=== PATIENT | female | born 1950 | race Caucasian/White ===

== ENCOUNTER 2020-12-03 10:17 | Emergency (ER) | payer MEDICARE, BC, SELFPAY ==
--- NOTE | ~2020-12-03 | CT_ITS ---
EXAMINATION: CT abdomen pelvis w con DATE: 12/03/2020 14:52 INDICATION: Low abdominal pain. TECHNIQUE: Computed tomography (CT) of the abdomen and pelvis was performed with 100 mL Omnipaque 350 intravenous contrast. Automated exposure control and iterative reconstruction technique were employe d. The dose-length product was 906.16 mGy-cm. COMPARISON: CT abdomen and pelvis 05/26/2018 FINDINGS: The visualized portions of the lung bases demonstrate mild atelectasis. No pleural effusion . Cardiomegaly is noted. There is pacer wires in right atrium, right ventricle, and coronary sinus. N o pericardial effusion. There is a small sliding hiatal hernia. The liver, gallbladder, spleen, pancr eas, adrenal glands, and left kidney are normal. There is mild atrophy of right kidney. There are sca ttered diverticula in the colon. There is wall thickening of the colon from distal transverse colon t o distal descending colon with surrounding fat stranding, consistent with colitis. There is liquid st ool in the colon suggestive of diarrhea. The appendix is normal. The terminal ileum is normal. There are no pathologically enlarged lymph nodes. There is trace ascites in the pelvis. There is no signifi cant stenosis of celiac axis, superior mesenteric artery, or inferior mesenteric artery. There is mil d thoracolumbar spondylosis. IMPRESSION: 1. Recurrent colitis from the distal transverse colon to distal descending colon. The differential di agnosis includes infectious colitis and ischemic colitis (such as from a hypotensive episode). Reviewed, dictated and finalized at location B. IMPRESSION: 1. Recurrent colitis from the distal transverse colon to distal descending colo n. The differential diagnosis includes infectious colitis and ischemic colitis (such as from a hypotensive episode).
[2020-12-03 10:42] VITALS: BP 110/53; PULSE 65; RESP 18; TEMP 36.8; O2SAT 98
[2020-12-03 11:05] LABS: Basophils Absolute Auto 0.1 K/mm3 (0.0-0.1); Basophils Percent Auto 0.7 % (0.2-1.2); Eosinophils Absolute Auto 0.3 K/mm3 (0-0.3); Eosinophils Percent Auto 3.8 % (0-4.4); Hematocrit 45.1 % (37.0-47.0); Immature Granulocyte Absolute 0.03 K/mm3 (0.00-0.031); Immature Granulocyte Percent A 0.4 % (0-0.5); Lymphocytes Percent Auto 16.8 % (18.3-44.2); Mean Corpuscular Hemoglobin 28.1 pg (26-34); Mean Corpuscular Volume 90.4 fl (80-100); Mean Platelet Volume 10.8 fl (7.4-10.4); Monocytes Absolute Auto 0.7 K/mm3 (0.1-0.6); Monocytes Percent Auto 8.5 % (2.6-8.5); Neutrophils Absolute Auto 5.8 K/mm3 (1.3-6.7); Neutrophils Percent Auto 69.8 % (45.5-73.1); Platelet Count Result 173 k/mm3 (150-375); Red Blood Count 4.99 M/mm3 (4.2-5.4); White Blood Count 8.3 K/mm3 (4.5-10.0)
[2020-12-03 11:17] LABS: Alanine Aminotransferase 20 U/L (4-35); Alkaline Phosphatase 55 U/L (38-126); Anion Gap 6 mmol/L (8-16); Aspartate Amino Transferase 25 U/L (14-36); Bilirubin,Total 0.8 mg/dL (0.2-1.3); Blood Urea Nitrogen 16 mg/dL (7-17); Calcium 9.1 mg/dL (8.4-10.2); Carbon Dioxide 25 mmol/L (22-30); Chloride 102 mmol/L (98-107); Estimated CRCL calculation 55 ml/min; Estimated Glomerular Filt Rate > 60; Glucose 101 mg/dL (65-110); Potassium 3.8 mmol/L (3.4-5.0); Sodium 133 mmol/L (137-145)
[2020-12-03 11:23] LABS: Prothrombin Time 12.9 Seconds (11.1-14.7)
[2020-12-03 11:24] LABS: Partial Thromboplastin Time 25.3 SECONDS (22.3-36.8)
--- NOTE | 2020-12-03 13:28 | ED.GIBLEED ---
HPI - GI Bleed General Chief complaint: GI Bleed Stated complaint: lower abd pain Time Seen by Provider: 12/03/20 13:28 Source: patient Mode of arrival: ambulatory Limitations: no limitations History of Present Illness HPI Narrative: The patient is a 70 yo female with a history of HTN, HLD, AICD, who presents for evaluation of bright red blood per rectum. She has had BRBPR over the past 24 hours. She reports lower abdominal pain, fever and chills. She does have a history of colitis in the past. Pt did have one episode of vomiting today. She also reports diarrhea with blood and clots. No recent travel. No sick contacts. Pt takes a daily baby ASA. Pt denies weakness. No lightheadedness or dizziness. She denies shortness of breath or chest pain. Pt currently feels well without any severe pain. Related Data Home Medications Medication Instructions Recorded Confirmed aspirin 81 mg tablet,delayed 81 mg PO DAILY 02/21/19 08/11/20 release carvedilol 12.5 mg tablet 12.5 mg PO Q12H 02/21/19 08/11/20 lisinopril 40 mg tablet 40 mg PO DAILY 02/21/19 08/11/20 Allergies Allergy/AdvReac Type Severity Reaction Status Date / Time ibuprofen AdvReac Unknown Nausea and Verified 08/23/16 09:22 Vomiting EYE DROPS FOR PINK EYE Allergy Unknown Rash Uncoded 10/21/14 17:53 Review of Systems Review of Systems: CONSTITUTIONAL: Subjective fever and chills EYES: Denies visual changes, redness, or discharge. ENT: Denies rhinorrhea, congestion, sore throat, or otalgia. CARDIOVASCULAR: Denies chest pain, palpitations, or edema. RESPIRATORY: Denies cough or dyspnea. GASTROINTESTINAL:Reports lower abdominal pain, bright red blood per rectum GENITOURINARY: Denies dysuria or hematuria. SKIN: Denies rash or itching. MUSCULOSKELETAL: Denies back pain, joint pain, or myalgia. NEUROLOGIC: Denies headache, numbness, or weakness. [facility] Past Medical History Medical History (Updated 12/03/20 @ 15:24 by Nia Stewart MD) Allergic rhinitis Cardiac arrhythmia Colitis Essential (primary) hypertension Hyperlipidemia LDL goal <100 Surgical History Surgical History (Updated 12/03/20 @ 14:42 by Nia Stewart MD) Status post implantation of automatic cardioverter/defibrillator (AICD) Family History Family History Father Diabetes mellitus, Onset Age: 93 Family history of congestive heart failure, Onset Age: 93 Sibling Patient's sister is in good health Malignant neoplasm of prostate Grandparent Family history of alcoholism, Onset Age: 55 Acute myocardial infarction, Onset Age: 75 Family history of type 2 diabetes mellitus, Onset Age: 75 Mother Family history of malignant neoplasm of breast in first degree relative, Onset Age: 90 Family history of congestive heart failure, Onset Age: 90 Social History Social History Smoking status: Former smoker Second hand tobacco smoke exposure: No Smoking end date: 04/17/88 Alcohol intake: current Drinks per week: 1 Alcohol use details: wine on occasion Substance use: never Exam Narrative: GENERAL: Awake, alert, conversant HEAD: Normocephalic, atraumatic. EYES: PERRLA and EOMI. ENT: Nares clear, no rhinorrhea or epistaxis. Mucous membranes moist. NECK: Supple. CHEST: No respiratory distress, breathing even and non labored HEART: Regular rate, sinus rhythm ABDOMEN:Non distended, mildly tender in the LLQ, no rebound EXTREMITIES: Normal range of motion. No edema. SKIN: Warm, dry, no rash. NEURO:No focal deficits. Alert and oriented x3 Course Vital Signs Vital signs: Vital Signs Temperature 36.8 C 12/03/20 10:42 Pulse Rate 65 12/03/20 10:42 Respiratory Rate 18 12/03/20 10:42 Blood Pressure 110/53 L 12/03/20 10:42 Pulse Oximetry 98 12/03/20 10:42 Temperature 36.8 C 12/03/20 10:42 Pulse Rate
[2020-12-03] MEDS: SODIUM CHLORIDE 0.9% IV 1,000 ML 999 ML IV CONT (15:18)
== END 2020-12-03 16:16 | disposition home or self-care (01) ==
PROVIDERS: Emergency Provider Emergency Medicine; PCP Internal Medicine
DX: A09 Infectious gastroenteritis and colitis, unspecified (principal); I10 Essential (primary) hypertension; E78.5 Hyperlipidemia, unspecified; Z95.810 Presence of automatic (implantable) cardiac defibrillator; Z79.82 Long term (current) use of aspirin; Z87.891 Personal history of nicotine dependence
CPT/HCPCS: 36415; 74177; 80053; 85025; 85610; 85730; 86850; 86900; 86901; 96360; 99284; J7030; Q9967

== ENCOUNTER 2021-10-18 08:40 | Emergency (ER) | payer MEDICARE, BC, SELFPAY ==
--- NOTE | ~2021-10-18 | CT_ITS ---
EXAMINATION: CTA chest PE protocol DATE: 10/18/2021 10:54 INDICATION: Shortness of breath. Cough. TECHNIQUE: Computed tomography angiography (CTA) of the chest was performed with 100 mL Omnipaque-350 intravenous contrast timed to evaluate the pulmonary arteries. Coronal maximum intensity projection 3D-reconstructions were created by the technologist. Automated exposure control and iterative reconst ruction technique were employed. Exam dose: 610.11 mGy-cm total exam DLP. COMPARISON: 10/18/2021 2 view chest FINDINGS: There is diagnostic contrast enhancement of the pulmonary arteries and no evidence of pulmo nary embolism. No thoracic aortic aneurysm or dissection. Mild bilateral apical linear scarring. There are focal areas of peripheral infiltrate in the posterio r medial upper lobes and posterior aspect of the lower posterior segment of the right upper lobe Minimal bilateral lower lobe dependent atelectasis. Heart size is within normal limits. Triple lead left-sided pacemaker device. Coronary artery calcific ation. No pericardial effusion. Normal morphology of the adrenal glands. No suspicious osteolytic or osteoblastic lesions. IMPRESSION: No evidence of pulmonary embolism Scattered mild pulmonary infiltrates and bilateral lower lobe minimal dependent atelectasis Reviewed, dictated and finalized at Location [facility]. Reviewed, dictated and finalized at location A.
--- NOTE | ~2021-10-18 | XR_ITS ---
XR chest 2V DATE: 10/18/2021 09:39 INDICATION: Cough, shortness of breath TECHNIQUE: PA and lateral views COMPARISON: 12/24/2005 2 view chest FINDINGS: Left triple lead pacemaker device with leads overlying right atrium, right ventricle and co ronary sinus. Heart size is within normal limits. Mild right mid and bilateral lower lung infiltrate or atelectasis. No pleural effusion or pulmonary v ascular congestion or pneumothorax. IMPRESSION: Mild infiltrate or atelectasis in the right mid and both lower lung zones Triple lead left pacemaker device Reviewed, dictated and finalized at location A.
[2021-10-18 08:48] VITALS: BP 148/66; PULSE 57; RESP 20; TEMP 36.9; O2SAT 92
--- NOTE | 2021-10-18 08:56 | ECG_ITS ---
Measurements Intervals Copen Rate: 55 P: 8 OR: 176 QRS: 138 QRSD: 133 T: 40 QT: 481 QTc: 460 Interpretive Statements ELECTRONIC ATRIAL PACEMAKER WITH INHIBITION ELECTRONIC VENTRICULAR PACEMAKER VENTRICULAR PREMATURE COMPLEXES BASELINE ARTIFACT- I, II, III, AVR, AVL, AVF, V6 NO FURTHER INTERPRETATION IS POSSIBLE BORDERLINE ECG Electronically Signed On 10-18-2021 15:12:41 CDT by Berlin Flores D.O.
--- NOTE | 2021-10-18 09:05 | ED.SOB ---
HPI - SOB/Dyspnea General Chief Complaint: Upper Respiratory Infection Stated Complaint: Cough, Face/Ear Pain Time Seen by Provider: 10/18/21 09:04 History of Present Illness HPI Narrative: pt says cough since last monday went to UC and around sick family member pt dx viral infection given prednisone but getting worse and more sob, family member dx bronchitis given abx. no f/cp but having sob and now right ear pain no n/v/d/leg swelling or pain both have not tested positive for covid all testing neg so far Related Data Home Medications Medication Instructions Recorded Confirmed aspirin 81 mg tablet,delayed 81 mg PO DAILY 02/21/19 02/05/21 release (Adult Low Dose Aspirin) carvedilol 12.5 mg tablet 12.5 mg PO Q12H 02/21/19 02/05/21 lisinopril 40 mg tablet 40 mg PO DAILY 02/21/19 02/05/21 Allergies Allergy/AdvReac Type Severity Reaction Status Date / Time ibuprofen AdvReac Unknown Nausea and Verified 10/18/21 08:57 Vomiting EYE DROPS FOR PINK EYE Allergy Unknown Rash Uncoded 10/18/21 08:57 Review of Systems Constitutional: Comments: CONSTITUTIONAL: Denies fever, chills, or sweats. EYES: Denies visual changes, redness, or discharge. ENT: Denies rhinorrhea, congestion, sore throat, has otalgia. CARDIOVASCULAR: Denies chest pain, palpitations, or edema. RESPIRATORY: has cough and dyspnea. GASTROINTESTINAL: Denies abdominal pain, nausea, vomiting, or diarrhea. GENITOURINARY: Denies dysuria or hematuria. SKIN: Denies rash or itching. MUSCULOSKELETAL: Denies back pain, joint pain, or myalgia. NEUROLOGIC: Denies headache, numbness, or weakness. PSYCHIATRIC: Denies anxiety or depression. [facility] Past Medical History Medical History Allergic rhinitis Cardiac arrhythmia Colitis Essential (primary) hypertension Hyperlipidemia LDL goal <100 Surgical History Surgical History Status post implantation of automatic cardioverter/defibrillator (AICD) Family History Family History Father Diabetes mellitus, Onset Age: 93 Family history of congestive heart failure, Onset Age: 93 Sibling Patient's sister is in good health Malignant neoplasm of prostate Grandparent Family history of alcoholism, Onset Age: 55 Acute myocardial infarction, Onset Age: 75 Family history of type 2 diabetes mellitus, Onset Age: 75 Mother Family history of malignant neoplasm of breast in first degree relative, Onset Age: 90 Family history of congestive heart failure, Onset Age: 90 Social History Social History Smoking status: Former smoker Second hand tobacco smoke exposure: No Smoking end date: 04/17/88 Alcohol intake: current Drinks per week: 1 Alcohol use details: wine on occasion Substance use: never Exam Const: Other: APPEARANCE: Well appearing, no pain in distress, well-nourished. Head normocephalic atraumtaic. EYES: PERRLA/EOMI, conjunctivae very clear. NOSE: Normal no drainage EARS:TMS clear left but red retracted right, THROAT: Pharynx clear, no exudate. NECK: Supple. No adenopathy, no masses. RESPIRATORY: Airway patent, repsirations nonlabored. Clear to auscultation bilaterally, no rales, rhonchi, wheezing. but overall decrased b/l CARDIOVASCULAR: Regular rate and rhythm without murmurs rubs or gallops. ABDOMINAL: Soft, nontender, nondistended, no hepatosplenomegally MUSCULOSKELETAl: Moves all extremities. Strenght/ROM intact, No edema, No calf tenderness. NEURO: Alert. Cranial nerves II through XII intact. Good gait. Good coordination SKIN:: Warm, dry. Normal Color PSYCHIATRIC: Normal affect/mood, normal interaction with parents. Course Vital Signs Vital signs: Vital Signs Temperature 36.9 C 10/18/21 08:48 Pulse Rate 57 L 10/18/21 08:48 Respi
[2021-10-18 09:11] VITALS: O2SAT 96
[2021-10-18 09:15] LABS: Basophils Absolute Auto 0.1 K/mm3 (0.0-0.1); Basophils Percent Auto 0.4 % (0.2-1.2); Eosinophils Absolute Auto 0.1 K/mm3 (0-0.3); Eosinophils Percent Auto 0.4 % (0-4.4); Hematocrit 40.5 % (37.0-47.0); Hemoglobin 12.9 g/dL (12.0-15.0); Immature Granulocyte Absolute 0.06 K/mm3 (0.00-0.031); Immature Granulocyte Percent A 0.5 % (0-0.5); Lymphocytes Percent Auto 6.5 % (18.3-44.2); Mean Corpuscular HGB Conc 31.9 g/dl (32-36); Mean Corpuscular Hemoglobin 27.9 pg (26-34); Mean Corpuscular Volume 87.7 fl (80-100); Mean Platelet Volume 10.5 fl (7.4-10.4); Monocytes Absolute Auto 1.1 K/mm3 (0.1-0.6); Monocytes Percent Auto 8.7 % (2.6-8.5); Neutrophils Absolute Auto 10.2 K/mm3 (1.3-6.7); Neutrophils Percent Auto 83.5 % (45.5-73.1); Platelet Count Result 202 k/mm3 (150-375); Red Blood Count 4.62 M/mm3 (4.2-5.4); Red Cell Distribution Width 12.8 % (11.5-14.5); White Blood Count 12.2 K/mm3 (4.5-10.0)
[2021-10-18] MEDS: ALBUTEROL SULFATE (*SP) AEROSOL 1 PUFF 2 PUFF INHALATION (09:17)
[2021-10-18 09:24] LABS: INR 1.1; Prothrombin Time 13.9 Seconds (11.1-14.7)
[2021-10-18 09:25] LABS: Partial Thromboplastin Time 24.8 SECONDS (22.3-36.8)
[2021-10-18 09:25] LABS: Alveolar/Arterial O2 Gradient 23.8 mmHg; Base Excess ABG -0.6 mEq/l (+/-2.0); Fractional Inspired Oxygen 28 %; HCO3 ABG 23.9 mEq/l (22.0-26.0); Oxygen Saturation ABG 98.6 % (95.0-100.0); Oxyhemoglobin 97.4 % THb (90.0-100.0); PCO2 ABG 39.1 mmHg (35.0-45.0); PO2 ABG 129.7 mmHg (80.0-100.0); PO2 FiO2 Ratio Arterial Blood 4.63 %; Total Hemoglobin 13.7 g/dL (12.0-18.0); pH ABG 7.404 (7.350-7.450)
[2021-10-18 09:26] LABS: Alanine Aminotransferase 22 U/L (6-35); Albumin Level 3.8 g/dL (3.5-5.1); Alkaline Phosphatase 73 U/L (38-126); Anion Gap 3 mmol/L (8-16); Aspartate Amino Transferase 26 U/L (14-36); Bilirubin,Total 0.3 mg/dL (0.2-1.3); Blood Urea Nitrogen 20 mg/dL (7-17); Calcium 8.5 mg/dL (8.4-10.2); Carbon Dioxide 30 mmol/L (22-30); Chloride 100 mmol/L (98-107); Estimated CRCL calculation 63 ml/min; Estimated Glomerular Filt Rate > 60; Glucose 116 mg/dL (65-110); Potassium 3.9 mmol/L (3.4-5.0); Sodium 133 mmol/L (137-145)
[2021-10-18 09:32] LABS: D Dimer 0.68 ug/mL (<0.48)
[2021-10-18 09:39] LABS: NT Pro B Type Natriuretic Pept 612 pg/mL (5-100)
[2021-10-18 09:53] LABS: SARS-CoV-2 RNA PCR Negative
[2021-10-18 10:12] VITALS: BP 124/56; PULSE 50; RESP 17; O2SAT 98
[2021-10-18 10:13] LABS: Troponin I < 0.012 ng/mL (0.000-0.034)
[2021-10-18] MEDS: FUROSEMIDE INJ 40 MG/4 ML VIAL 20 MG IV PUSH (10:26)
[2021-10-18] MEDS: AZITHROMYCIN 250 MG TABLET 500 MG PO (10:26)
--- NOTE | 2021-10-18 10:40 | PC.NURSE ---
pt to CT at this time.
[2021-10-18 12:01] VITALS: BP 133/52; PULSE 58; RESP 18; O2SAT 97
[2021-10-19 11:27] LABS: Device NASAL CANNULA
== END 2021-10-18 12:03 | disposition home or self-care (01) ==
PROVIDERS: Emergency Provider Emergency Medicine; PCP Family Medicine
DX: J18.9 Pneumonia, unspecified organism (principal); H66.91 Otitis media, unspecified, right ear; I10 Essential (primary) hypertension; E78.5 Hyperlipidemia, unspecified; Z87.891 Personal history of nicotine dependence; Z20.822 Contact with and (suspected) exposure to COVID-19
CPT/HCPCS: 36415; 36600; 71046; 71275; 80053; 82805; 83735; 83880; 84484; 85025; 85380; 85610; 85730; 93005; 96365; 96375; 99284; A9270; C9803; J0696; J1940; Q9967; U0003; U0005

== ENCOUNTER 2023-02-02 08:23 | Outpatient (CLI) | payer MEDICARE, BC, SELFPAY ==
[2023-02-02 18:55] LABS: Alanine Aminotransferase 15 U/L (6-35); Alkaline Phosphatase 56 U/L (38-126); Anion Gap 4 mmol/L (8-16); Aspartate Amino Transferase 27 U/L (14-36); Bilirubin,Total 0.5 mg/dL (0.2-1.3); Blood Urea Nitrogen 23 mg/dL (7-17); Carbon Dioxide 31 mmol/L (22-30); Chloride 103 mmol/L (98-107); Cholesterol 126 mg/dL (0-200); Estimated Glomerular Filt Rate 54; Glucose 88 mg/dL (65-110); HDL Direct 38 mg/dL; Potassium 4.2 mmol/L (3.4-5.0); Sodium 138 mmol/L (137-145); Triglycerides 75 mg/dL (<150)
[2023-02-02 21:33] LABS: LDL Cholesterol Direct 71 mg/dL
[2023-02-03 08:15] LABS: Hemoglobin A1C 5.2 % (<5.7)
== END 2023-02-02 08:24 | disposition home or self-care (01) ==
LOC: ANHGOSHLAB 08:29
PROVIDERS: PCP Family Medicine; Visit Provider Family Medicine
DX: E78.5 Hyperlipidemia, unspecified (principal); Z13.228 Encounter for screening for other metabolic disorders; R73.9 Hyperglycemia, unspecified
CPT/HCPCS: 36415; 80053; 80061; 83036

== ENCOUNTER 2024-10-02 10:41 | Emergency (ER) | payer MEDICARE, BC, SELFPAY ==
--- NOTE | ~2024-10-02 | XR_ITS ---
XR knee RT min 4V Ordering provider: Albertina Ely PA-C History: . knee pain, fall CHRONIC INSTABITLITY TWIST INJ W/LAT SWELLIN . Comparison: None. FINDINGS: BONES: No acute fracture or dislocation. JOINT SPACES: Normal. SOFT TISSUES: Normal. IMPRESSION: No acute osseous abnormality right knee. Reviewed, dictated and finalized at location A.
--- NOTE | ~2024-10-02 | US_ITS ---
EXAMINATION: US venous doppler LE RT DATE: 10/02/2024 12:14 INDICATION: Posterior right knee pain TECHNIQUE: Grayscale ultrasound images without and with compression and Doppler ultrasound images of the right lower extremity veins were obtained. COMPARISON: None. FINDINGS: The visualized portions of right common femoral vein, profunda (deep) femoral vein, femoral vein, pop liteal vein, peroneal trunk, posterior tibial veins, peroneal veins, gastrocnemius vein and greater s aphenous vein outflow are patent. IMPRESSION: 1. No deep venous thrombosis in the right lower limb. Reviewed, dictated and finalized at location A.
--- NOTE | ~2024-10-02 | CT_ITS ---
CT head without contrast Indication: Head injury Technique: Serial scans were obtained through the brain without the administration of contrast. Dose reduction technique was used on this scan by utilizing automated exposure control and iterative recon struction technique. The dose-length product (DLP) was 605.33 mGy-cm. Findings: There is no evidence of intracranial hemorrhage, mass lesion, or acute infarct. The ventri cles and subarachnoid spaces are unremarkable. Low attenuation regions are seen within the periventr icular white matter bilaterally, likely representing changes from chronic microvascular ischemic dise ase. There is no evidence of edema, mass effect or midline shift. The visualized paranasal sinuses and mastoid air cells are clear. Impression: No intracranial hemorrhage, mass, or acute infarct. Mild chronic white matter changes, as above. Reviewed, dictated and finalized at location . Impression: No intracranial hemorrhage, mass, or acute infarct. Mild chronic white matter changes, as above.
[2024-10-02 10:57] VITALS: BP 152/84; PULSE 57; RESP 20; TEMP 36.4; O2SAT 97
[2024-10-02] MEDS: ACETAMINOPHEN 500 MG TABLET 1000 MG PO (11:45)
--- NOTE | 2024-10-02 11:53 | ED_ITS ---
HPI - Extremity Injury (Lower) General Chief Complaint: Extremity Injury, Lower Stated Complaint: Fell yesterday. Right leg pain Time Seen by Provider: 10/02/24 11:13 Source: patient Mode of arrival: ambulatory Limitations: no limitations History of Present Illness HPI Narrative: Patient is a 74-year-old female who presents the ED with report of right knee pain. Patient reports her right leg gave out on her last night and she fell, landing on her right knee. States she twisted awkwardly when she fell. Complains of pain to her right posterior knee since then. She did hit her head, denied LOC. Denies headache, nausea, vomiting, dizziness, lightheadedness. Denies neck or back pain. Has not taken anything for pain. Is able to ambulate, but has pain with this. Denies numbness. Related Data Home Medications ?Medication ?Instructions ?Recorded ?Confirmed ?Last Taken ?Type aspirin 81 mg tablet,delayed 81 mg PO DAILY 02/21/19 12/07/23 Unknown History release (Adult Low Dose Aspirin) carvedilol 12.5 mg tablet 12.5 mg PO Q12H 02/21/19 12/07/23 Unknown History spironolactone 25 mg tablet 25 mg PO DAILY 08/09/22 12/07/23 Unknown History losartan 50 mg tablet 50 mg PO DAILY 12/07/23 12/07/23 Unknown History Allergies Allergy/AdvReac Type Severity Reaction Status Date / Time perflutren (From Definity) Allergy Mild Back Pain Verified 12/07/23 13:39 lisinopril AdvReac Mild Cough Verified 12/07/23 13:39 ibuprofen AdvReac Unknown Nausea and Verified 12/07/23 13:39 Vomiting EYE DROPS FOR PINK EYE Allergy Unknown Rash Uncoded 12/07/23 12:56 Review of Systems Review of Systems: All systems reviewed & are unremarkable except as noted in HPI. All systems reviewed & are unremarkable except as noted in HPI and below PMFSH Past Medical History Medical History Allergic rhinitis Cardiac arrhythmia Colitis Essential (primary) hypertension Hyperlipidemia LDL goal <100 Surgical History Surgical History Status post implantation of automatic cardioverter/defibrillator (AICD) Family History Family History Father Diabetes mellitus, Onset Age: 93 Family history of congestive heart failure, Onset Age: 93 Sibling Patient's sister is in good health Malignant neoplasm of prostate Grandparent Family history of alcoholism, Onset Age: 55 Acute myocardial infarction, Onset Age: 75 Family history of type 2 diabetes mellitus, Onset Age: 75 Mother Family history of malignant neoplasm of breast in first degree relative, Onset Age: 90 Family history of congestive heart failure, Onset Age: 90 Social History Social History Smoking status: Former smoker Second hand tobacco smoke exposure: No Smoking end date: 04/17/88 Alcohol intake: current Drinks per week: 1 Alcohol use details: wine on occasion Substance use: never Lack of Transportation: No Lack of Food: Never True Current Housing: I Have Housing Concerned About Future Housing: No Difficulty Paying Gas/Electric Bills: No Difficulty Paying for Meds: No Currently Unemployed: No Education: Trade/Vocational Certificate Difficulty w/ Childcare or Family Care: No Exam Narrative: GENERAL: Elderly but well appearing, well-nourished, non-toxic, in no acute distress. HEAD: Normocephalic, atraumatic. No contusions. EYES: PERRL/EOMI, conjunctiva clear. RESPIRATORY: Airway patent, respirations nonlabored. CARDIOVASCULAR: Regular rate and rhythm without murmurs, rubs, or gallops. Pedal pulses intact. MUSCULOSKELETAL: Moves all extremities. Mild limited extension range of motion of right leg/knee due to pain. Full flexion. Tenderness to palpation along posterior right knee/popliteal region. Sensation intact. No significant lower extremity swelling. SKIN: Warm, dry, normal color. NEURO: A&O X3. Speech clear. No ataxic movements. PSYCHIATRIC: Appropriate mood and affect. Normal interaction. Course Vital Signs Vital signs: Vital Signs Temperature 97.5 F L 10/02/24 10:57 Pulse Rate 57 L 10/02/24 10:57 Respiratory Rate 20 10/02/24 10:57 Blood Pressure 152/84 H 10/02/24 10:57 Pulse Oximetry 97 10/02/24 10:57 Oxygen Delivery Room Air 10/02/24 10:57 Temperature 97.5 F L 10/02/24 10:57 Pulse Rate 57 L 10/02/24 10:57 Respiratory Rate 20 10/02/24 10:57 Blood Pressure 152/84 H 10/02/24 10:57 Pulse Oximetry 97 10/02/24 10:57 Oxygen Delivery Room Air 10/02/24 10:57 MDM - Extremity Injury (Lower) MDM Narrative Medical decision making narrative: Patient?s injury is consistent with musculoskeletal etiology. No signs of neurologic or vascular compromise on physical examination. Compartments are soft without signs of compartment syndrome. XR of right knee negative. No fracture or joint effusion. Venous Doppler ultrasound was obtained of right lower extremity. CT brain was obtained and without acute findings. No neck pain or tenderness on exam. C-spine cleared. Pain is consistent with knee sprain, possible ligamentous vs meniscal injury. Patient has a brace she has been wearing which does help the pain. Discussed RICE therapy, tylenol as needed for pain. Patient is felt to be stable for discharge home and further outpatient management and treatment. Will refer to orthopedics for further eval if needed. given return precautions. She agrees with plan. Discharged in stable condition. Medical Records Attestation: I reviewed the patient's medical records. Imaging Data Attestation: I personally reviewed and interpreted this imaging study as follows: Radiologist's impression: ITS Impressions Knee X-Ray 10/02/24 11:44 IMPRESSION: No acute osseous abnormality right knee. Head CT 10/02/24 11:59 Impression: No intracranial hemorrhage, mass, or acute infarct. Mild chronic white matter changes, as above. Venous Doppler Study 10/02/24 12:23 IMPRESSION: 1. No deep venous thrombosis in the right lower limb. Discharge Plan Discharge Clinical Impression: Strain of right knee Qualifiers: Encounter type: initial encounter Qualified Code(s): S86.911A - Strain of unspecified muscle(s) and tendon(s) at lower leg level, right leg, initial encounter Patient Disposition: Home Condition: Stable Instructions: Antibiotic Form, Knee Pain (ED) Additional Instructions: Your imaging here did not show any evidence of fracture or blood clots. You likely strained your knee. Continue Tylenol, ice, elevation of leg, brace for support. You may follow-up with orthopedics for further evaluation if needed. Return to the ED for worsening or severe pain, recurrent fall or injury, numbness, or any other symptoms of concern. Patient Language: Citizen Of [place] Prescriptions: No Action losartan 50 mg tablet 50 mg PO DAILY spironolactone 25 mg tablet 25 mg PO DAILY aspirin [Adult Low Dose Aspirin] 81 mg tablet,delayed release (DR/EC) 81 mg PO DAILY carvedilol 12.5 mg tablet 12.5 mg PO Q12H pravastatin 20 mg tablet 20 mg PO DAILY Qty: 90 1RF Follow-up/Referrals: PHYSICIAN,PROFESSOR OF SOCIOLOGY [Primary Care Provider] - Mayo Alas MD [Physician] - (ORTHOPEDICS) Time of Disposition: 12:52
--- OUTSIDE RECORDS SUMMARY | 2024-10-02 12:17 | XMS_ITS | Referral Summary ---
Author Organization [facility] [address] [address] Address [address] [place] [address] Care Team Providers Care Certified Retinal Angiographer Name Role Phone No, Physician Primary Care Provider [phone] Encounters Date Type Department Care Team Description 10/02/2024 Orders Only [facility] Cardiology [facility] [address] [place] [id number] Sherif Borden MD Complete atrioventricular block (HCC) (Primary Dx); 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; NICM (nonischemic cardiomyopathy) (HCC); Congestive heart failure, unspecified HF chronicity, unspecified heart failure type (HCC) 10/02/2024 10:00 AM CDT Ancillary Procedure [facility] Cardiology [address] [facility] [address] [place] [address] NICM (nonischemic cardiomyopathy) (HCC); Congestive heart failure, unspecified HF chronicity, unspecified heart failure type (HCC); Complete atrioventricular block (HCC); 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 from Last 3 Months Allergies Active Allergy Reactions Criticality Noted Date Comments Perflutren Lipid Microspheres Other (See comments) Low 06/13/2022 Sudden back ache Aurora Flavor Unknown Prochlorperazine Blisters High Reaction: BLISTERS, Medications aspirin 81 mg tablet take 1 by Oral route 2- 3 times every week 0 0 9 Active calcium carbonate-vitamin D3 (CALCIUM 600 WITH VITAMIN D3) 600 mg(1,500mg) -500 unit capsule take as directed 0 0 6 Active spironolactone (ALDACTONE) 25 mg tablet TAKE 1 TABLET(25 MG) BY MOUTH DAILY 30 tablet 11 4 Active carvediloL (COREG) 12.5 mg tablet TAKE 1 TABLET(12.5 MG) BY MOUTH TWICE DAILY WITH MEALS 180 tablet 1 4 Active losartan (COZAAR) 50 mg tabletIndications:D ilated cardiomyopathy (HCC),Essential hypertension Take 1 tablet (50 mg total) by mouth daily 90 tablet 3 4 02/16/20 25 Active pravastatin (PRAVACHOL) 20 mg tablet Take 1 tablet (20 mg total) by mouth daily 90 tablet 3 5 05/30/19 26 Active Active Problems Problem Noted Date Diagnosed Date ALAN (dyspnea on exertion) 05/15/2023 Near syncope 03/16/2020 Hypercholesteremia 03/04/2019 Essential hypertension 11/23/2015 Overview (07/22/2016): Essential hypertension Assessment & Plan (11/24/2016 8:14 PM CDT): BP not at goal today and at last office visit although in general apparently runs fairly well. Obesity with body mass index 30 or greater 11/22 Overview (07/23/2016): Obesity (BMI 30-39.9) Biventricular ICD (implantab le cardioverter-defibrillator) in place 11/11/2014 Overview (09/20/2017): Medtronic BIV ICD Dx; NICM, CHF, CHB. Gen change 09/12/2017, chronic atrial lead 12/23/05, RV & LV leads 02/15/2012. Alternate carelink remote and office device checks Q6 mo. Assessment & Plan (11/24/2016 8:13 PM CDT): Upgraded to a by the ICD 2011. Pacemaker check 08/2016 showed normal function, no defibrillations. Dilated cardiomyopathy 11/05/2012 Overview (07/22/2016): [facility]OM[facility]ATH IN [facility] DIS Assessment & Plan (11/24/2016 8:14 PM CDT): Cardiomyopathy thought to be secondary to chronic RV pacing, or perhaps the bundle branch block was a manifestation of impending myocardial process. EF improved though not normalized, 45-50% in November 2013. Complete atrioventricular block 10/21/2008 Overview (07/22/2016): ATRIOVENT BLOCK COMPLETE Resolved Problems Problem Noted Date Diagnosed Date Resolved Date Hypertension 11/05/2012 11/24/2016 Overview (07/22/2016): HYPERTENSION NOS Social History Tobacco Use Types Packs/Day Years Used Date Smoking Tobacco: Former Cigarettes 0.8 10 0 04/17/1978 - 04/17/1988 Smokeless Tobacco: Never Tobacco Cessation:Counseling Given: Not Answered Alcohol Use Standard Drinks/Week Comments Yes 0 (1 standard drink = 0.6 oz pur e alcohol) Comments Unknown Sex and Gender Information Value Date Recorded Sex Assigned at Not on file Legal Sex Female 9:54 AM PROCEDURES NURSE Gender Identity Not on file Sexual Orientation Not on file Last Filed Vital Signs Vital Sign Reading Time Taken Comments Blood Pressure 120/64 05/30/2024 10:24 AM PROCEDURES NURSE Pulse 65 05/30/2024 10:24 AM PROCEDURES NURSE Temperature 36.2 C (97.1 F) 04/03/2020 10:18 AM PROCEDURES NURSE Respiratory Rate 14 11/24/2016 1:20 PM CDT Oxygen Saturation 96% 05/30/2024 10:24 AM PROCEDURES NURSE Inhaled Oxygen Concentration - - Weight 98 kg (216 lb) 05/30/2024 10:24 AM PROCEDURES NURSE Height 170.2 cm (5' 7) 05/30/2024 10:24 AM PROCEDURES NURSE Body Mass Index 33.83 05/30/2024 10:24 AM PROCEDURES NURSE Plan of Treatment Not on file Medical Devices Implanted Type Area Division Supervisor Device Identifier Shelf Expiration Date Model / Serial / Lot Icd-02/15/2012 Implanted:02/14 (Quantity not on file) Explanted:09/12 by Brook Loredo MD (Quantity not on file) ICD Chest Medtronic NICM, CHF, CHB PROTECTA C RT-D / [id number] / CHRONIC ATRIAL LEAD 2006 Icd-09/12/2017 Implanted:09/12 by Brook Loredo MD (Quantity not on file) ICD Chest Medtronic NICM, CHF, CHB VIVA HARNESS CLEANER-D / [id number] / CHRONIC LEADS A-2006-RV/LV-2 012 Insurance MEDICARE MEDICARE [facility] Member Subscriber Plan / Payer (Ef fective 2007-Present) Name:Nir Pradhan Relation to Subscriber:Self Name:Nir Pradhan Payer ID:[id number] ([facility]) Group ID:[id number] Type:[employer] Address: [facility] [id number] [id number] Care Teams Certified Retinal Angiographer Relationship Specialty Start Date End Date No, Physician PCP - General 05/30/24
--- OUTSIDE RECORDS SUMMARY | 2024-10-02 12:17 | XMS_ITS | Encounter Summary ---
Author Organization [facility] Address [address] [place] [address] Care Team Providers Care Kennel Helper Name Role Phone Sunday No MD Primary Care Provider [phone] Encounter Details Date Type Department Care Team (Late st Contact Info) Description 12/13/2007 Outpatient Historical [facility] Sunday No MD Other Screening Mammogram Social History Tobacco Use Types Packs/Day Years Used Date Smoking Tobacco: Never Assessed Comments Unknown Sex and Gender Information Value Date Recorded Sex Assigned at Not on file Legal Sex Female 5:15 AM SOAP CHIPPER Gender Identity Not on file Sexual Orientation Not on file documented as of this encounter Plan of Treatment Not on file documented as of this encounter Procedures Procedure Name Priority Date/Time Associated Diagnosis Comments MAMMO SCREENING BILAT Routine 12/13/2007 3:05 PM CDT documented in this encounter Results * MAMMO SCREENING BILAT (12/13/2007 3:05 PM CDT) Anatomical Region Laterality Modality Breast Bilateral Other 12/13/2007 3:05 PM CDT Narrative 01/01/2008 2:36 PM CDT [address] [address] Admit Date: 12/13/2007 TAMAR PRADHAN Sex: F Admit Prov: SUNDAY NO Date: 1950 Primary Care Prov: SUNDAY NO CMRN: [id number] [facility] [address] [place] [address] IMAGING SERVICES Ordering Prov: SUNDAY NO Accession Number: [id number] Interpretation BILATERAL SCREENING MAMMOGRAM 12/13/07 Reason for this examination: Annual screening study. Findings: The parenchyma is predominantly fatty bilaterally. There is no mass, malignant calcification, lymphadenopathy or other sign of malignancy. No change since 11/2005. Summary: No mammographic evidence of malignancy. Overall assessment: BIRADS category 1 - Negative Assessment BIRADS: 1-Negative Recommendation: Normal interval follow-up Dictated by: BARRY BARRETT Electronically signed by: BARRY BARRETT 01/01/2008 14:36 Transcribed: 01/01/2008 14:34 AMK Procedure Note Barry Barrett MD - 01/01/2008 [facility] [address] [place], [place] [address] Admit Date: 12/13/2007 SEMAJ RISHABHLATISHA Sex: F Admit Prov: KEAGAN SUNDAY Date: 1950 Primary Care Prov: SUNDAY NO CMRN: [id number] Room: [facility] SSN: [id number] IMAGING SERVICES Ordering Prov: KEAGAN SUNDAY Interpretation BILATERAL SCREENING MAMMOGRAM 12/13/07 Reason for this examination: Annual screening study. Findings: The parenchyma is predominantly fatty bilaterally. Thereis no mass, malignant calcification, lymphadenopathy or other sign ofmalignancy. No change since 11/2005. Summary: No mammographic evidence of malignancy. Overall assessment: BIRADS category 1 - Negative Assessment BIRADS: 1-Negative Recommendation: Normal interval follow-up Dictated by: BARRY BARRETT Electronically signed by: BARRY BARRETT 01/01/2008 14:36 Transcribed: 01/01/2008 14:34 AMK Sunday No MD MAMMO ORDERABLES Final Resul t documented in this encounter Visit Diagnoses Diagnosis Other screening mammogram documented in this encounter Care Teams Kennel Helper Relationship Specialty Start Date End Date Sunday No MD [address] [address] PCP - General 12/18/15 documented as of this encounter
--- OUTSIDE RECORDS SUMMARY | 2024-10-02 12:17 | XMS_ITS | Clinical Summary ---
Author Organization [facility] Address [address] [facility] Attn: Epic Prelude ADT [place] [address] Care Team Providers Care Clay Processing Factory Worker Name Role Phone Madai No MD Primary Care Provider [phone] Social History Tobacco Use Types Packs/Day Years Used Date Smoking Tobacco: Never Assessed Comments Unknown Sex and Gender Information Value Date Recorded Sex Assigned at Not on file Legal Sex Female 5:15 AM PROCESS CONTROL OPERATOR Gender Identity Not on file Sexual Orientation Not on file Plan of Treatment Health Maintenance Due Date Last Done Comments DTAP/TDAP/TD VACCINES (1 - Tdap) 1967 PNEUMOCOCCAL VACCINE 50+ YEARS (1 of 1 - PCV) 04/25/18 99 ZOSTER VACCINE (1 of 2) 1998 OSTEOPOROSIS SCREENING 2013 RSV VACCINE (60+ or ) (1 - 1-dose 75+ series) 2023 INFLUENZA VACCINE (#1) 2023 Care Teams Clay Processing Factory Worker Relationship Specialty Start Date End Date Madai No MD [address] [address] PCP - General 04/03/15
--- OUTSIDE RECORDS SUMMARY | 2024-10-02 12:17 | XMS_ITS | Encounter Summary ---
Author Organization [facility] Address [address] [place] [address] Care Team Providers Care Music Worker Name Role Phone Madai No MD Primary Care Provider [phone] Encounter Details Date Type Department Care Team (Latest Contact Info) Description 01/20/2006 Outpatient Historical HIS [facility] Madai Lopez MD Abnormal Mammogram, Unspecified (Primary Dx) Social History Tobacco Use Types Packs/Day Years Used Date Smoking Tobacco: Never Assessed Comments Unknown Sex and Gender Information Value Date Recorded Sex Assigned at Not on file Legal Sex Female 5:15 AM DOPSTER Gender Identity Not on file Sexual Orientation Not on file documented as of this encounter Plan of Treatment Not on file documented as of this encounter Visit Diagnoses Diagnosis Abnormal mammogram, unspecified- Primary documented in this encounter Care Teams Music Worker Relationship Specialty Start Date End Date Madai No MD [address] [facility] [address] [place] [id number] PCP - General 04/03/15 documented as of this encounter
--- OUTSIDE RECORDS SUMMARY | 2024-10-02 12:17 | XMS_ITS | Encounter Summary ---
Author Organization [facility] Healthcare Address [address] [place] [address] Care Team Providers Care Audio Operator Name Role Phone No, Physician Primary Care Provider Reason for Visit * Cardiology (Routine) - Closed Specialty Diagnoses / Procedures Referred By Contac t Referred To Contact Diagnoses NICM (nonischemic cardiomyopathy) (HCC) Congestive heart failure, unspecified HF chronicity, unspecified heart failure type (HCC) Complete atrioventricular block (HCC) Biventricular ICD (implantable cardioverter-defibrillator) in place Procedures DEVICE CHECK - IN OFFICE Brook Loredo MD Phone: tel: fax: [facility] Medical Group Referral ID Status Reason Start Date Expiration Date Visits Re quested Visits Authorized [id number] Closed 01/12/2022 02/11/2023 1 1 Encounter Details Date Type Department Care Team (Latest Contact Info) Description 10/02/2024 10:00 AM CDT Ancillary Procedure [facility] Medical [facility] Cardiology [address] [place] [address] NICM (nonischemic cardiomyopathy) (HCC); Congestive heart failure, unspecified HF chronicity, unspecified heart failure type (HCC); Complete atrioventricular block (HCC); 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 Social History Tobacco Use Types Packs/Day Years Used Date Smoking Tobacco: Former Cigarettes 0.8 10 0 04/17/1978 - 04/17/1988 Smokeless Tobacco: Never Alcohol Use Standard Drinks/Week Comments Yes 0 (1 standard drink = 0.6 oz pur e alcohol) Comments Unknown Sex and Gender Information Value Date Recorded Sex Assigned at Not on file Legal Sex Female 9:54 AM CRACKING UNIT OPERATOR Gender Identity Not on file Sexual Orientation Not on file documented as of this encounter Plan of Treatment Pending Results Name Type Priority Associated Diagnoses Date /Time DEVICE CHECK - IN OFFICE Cardiac Services Routine NICM (nonischemic cardiomyopathy) (HCC) Congestive heart failure, unspecified HF chronicity, unspecified heart failure type (HCC) Complete atrioventricular block (HCC) Biventricular ICD (implantable cardioverter-defibrillato r) in place 10/02/2024 9:46 AM CDT documented as of this encounter Visit Diagnoses Diagnosis NICM (nonischemic cardiomyopathy) (HCC) Congestive heart failure, unspecified HF chronicity, unspecified heart failure type (HCC) Complete atrioventricular block (HCC) Atrioventricular block, complete Biventricular ICD (implantable cardioverter-defibrillator) in place documented in this encounter Care Teams Audio Operator Relationship Specialty Start Date End Date No, Physician PCP - General 05/30/24 documented as of this encounter
--- OUTSIDE RECORDS SUMMARY | 2024-10-02 12:17 | XMS_ITS | Encounter Summary ---
Author Organization [facility] Address [address] [place] [address] Care Team Providers Care Clubhouse Attendant Name Role Phone No, Physician Primary Care Provider [phone] Reason for Referral * Cardiology (Routine) - Authorized Specialty Diagnoses / Procedures Referred By Contac t Referred To Contact Diagnoses Complete atrioventricular block (HCC) Biventricular ICD (implantable cardioverter-defibrillator) in place NICM (nonischemic cardiomyopathy) (HCC) Congestive heart failure, unspecified HF chronicity, unspecified heart failure type (HCC) Procedures DEVICE CHECK - REMOTE Sherif Borden MD [address] [address] Phone: tel: fax: Referral ID Status Reason Start Date Expiration Date V isits Requested Visits Authorized [id number] Authorized 10/02/2024 04/03/2026 1 1 * Cardiology (Routine) - Authorized Specialty Diagnoses / Procedures Referred By Contac t Referred To Contact Diagnoses Complete atrioventricular block (HCC) Biventricular ICD (implantable cardioverter-defibrillator) in place NICM (nonischemic cardiomyopathy) (HCC) Congestive heart failure, unspecified HF chronicity, unspecified heart failure type (HCC) Procedures DEVICE CHECK - REMOTE Sherif Borden MD [address] [place] [address] Phone: tel: fax: Referral ID Status Reason Start Date Expiration Date V isits Requested Visits Authorized [id number] Authorized 10/02/2024 04/03/2026 1 1 * Cardiology (Routine) - Authorized Specialty Diagnoses / Procedures Referred By Contac t Referred To Contact Diagnoses Complete atrioventricular block (HCC) Biventricular ICD (implantable cardioverter-defibrillator) in place NICM (nonischemic cardiomyopathy) (HCC) Congestive heart failure, unspecified HF chronicity, unspecified heart failure type (HCC) Procedures DEVICE CHECK - REMOTE Sherif Borden MD [address] [place] [address] Phone: tel: fax: Referral ID Status Reason Start Date Expiration Date V isits Requested Visits Authorized [id number] Authorized 10/02/2024 04/03/2026 1 1 * Cardiology (Routine) - Authorized Specialty Diagnoses / Procedures Referred By Contac t Referred To Contact Diagnoses Complete atrioventricular block (HCC) Biventricular ICD (implantable cardioverter-defibrillator) in place NICM (nonischemic cardiomyopathy) (HCC) Congestive heart failure, unspecified HF chronicity, unspecified heart failure type (HCC) Procedures DEVICE CHECK - IN OFFICE Sherif Borden MD [address] [facility] [address] [place] [address] Phone: tel: fax: [facility] Medical Group Referral ID Status Reason Start Date Expiration Date V isits Requested Visits Authorized [id number] Authorized 10/02/2024 11/01/2025 1 1 Encounter Details Date Type Department Care Team (Late st Contact Info) Description 10/02/2024 Orders Only [facility] Medical Group Cardiology [address] [place] [phone] Sherif Borden MD [address] [place] [address] Complete atrioventricular block (HCC) (Primary Dx); Biventricular ICD (implantable cardioverter-defibrillato r) in place; NICM (nonischemic cardiomyopathy) (HCC); Congestive heart failure, unspecified HF chronicity, unspecified heart failure type (HCC) Social History Tobacco Use Types Packs/Day Years Used Date Smoking Tobacco: Former Cigarettes 0.8 10 0 04/17/1978 - 04/17/1988 Smokeless Tobacco: Never Alcohol Use Standard Drinks/Week Comments Yes 0 (1 standard drink = 0.6 oz pur e alcohol) Comments Unknown Sex and Gender Information Value Date Recorded Sex Assigned at Not on file Legal Sex Female 9:54 AM 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 COMPILER Gender Identity Not on file Sexual Orientation Not on file documented as of this encounter Plan of Treatment Scheduled Orders Name Type Priority Associated Diagnoses Orde r Schedule DEVICE CHECK - IN OFFICE Cardiac Services Routine Complete atrioventricular block (HCC) Biventricular ICD (implantable cardioverter-defibrillato r) in place NICM (nonischemic cardiomyopathy) (HCC) Congestive heart failure, unspecified HF chronicity, unspecified heart failure type (HCC) 8 Occurrences starting 10/02/2024 until 04/16/2030 DEVICE CHECK - REMOTE Cardiac Services Routine Complete atrioventricular block (HCC) Biventricular ICD (implantable cardioverter-defibrillato r) in place NICM (nonischemic cardiomyopathy) (HCC) Congestive heart failure, unspecified HF chronicity, unspecified heart failure type (HCC) Expected: 01/01/2025, Expires: 04/16/2030 DEVICE CHECK - REMOTE Cardiac Services Routine Complete atrioventricular block (HCC) Biventricular ICD (implantable cardioverter-defibrillato r) in place NICM (nonischemic cardiomyopathy) (HCC) Congestive heart failure, unspecified HF chronicity, unspecified heart failure type (HCC) Expected: 04/02/2025, Expires: 04/16/2030 DEVICE CHECK - REMOTE Cardiac Services Routine Complete atrioventricular block (HCC) Biventricular ICD (implantable cardioverter-defibrillato r) in place NICM (nonischemic cardiomyopathy) (HCC) Congestive heart failure, unspecified HF chronicity, unspecified heart failure type (HCC) Expected: 07/02/2025, Expires: 04/16/2030 documented as of this encounter Visit Diagnoses Diagnosis Complete atrioventricular block (HCC)- Primary Atrioventricular block, complete Biventricular ICD (implantable cardioverter-defibrillator) in place NICM (nonischemic cardiomyopathy) (HCC) Congestive heart failure, unspecified HF chronicity, unspecified heart failure type (HCC) documented in this encounter Care Teams Clubhouse Attendant Relationship Specialty Start Date End Date No, Physician PCP - General 05/30/24 documented as of this encounter
--- OUTSIDE RECORDS SUMMARY | 2024-10-02 12:17 | XMS_ITS | Encounter Summary ---
Author Organization [facility] Address [address] [place] [address] Care Team Providers Care Brass Wind Instrument Maker Name Role Phone Madai No MD Primary Care Provider [phone] Encounter Details Date Type Department Care Team (Late st Contact Info) Description 12/06/2006 Outpatient Historical [facility] Madai No MD Other Screening Mammogram (Primary Dx) Social History Tobacco Use Types Packs/Day Years Used Date Smoking Tobacco: Never Assessed Comments Unknown Sex and Gender Information Value Date Recorded Sex Assigned at Not on file Legal Sex Female 5:15 AM COPPER MINER BLASTING Gender Identity Not on file Sexual Orientation Not on file documented as of this encounter Plan of Treatment Not on file documented as of this encounter Visit Diagnoses Diagnosis Other screening mammogram- Primary documented in this encounter Care Teams Brass Wind Instrument Maker Relationship Specialty Start Date End Date Madai No MD [address] [place] [id number] PCP - General 04/03/15 documented as of this encounter
--- OUTSIDE RECORDS SUMMARY | 2024-10-02 12:17 | XMS_ITS | Encounter Summary ---
Author Organization [facility] Medical [facility] Address [address] [facility] [address] [place] [address] Care Team Providers Care Telephone Exchange Operator Name Role Phone Emily Campbell NP Primary Care Provider [phone] Wilner Burnham MD Primary Care Provider [phone] Sebastien Elmore DO Primary Care Provider [phone] No, Physician Primary Care Provider [phone] Encounter Details Date Type Department Care Team (Late st Contact Info) Description 08/23/2016 Orders Only [facility] ProviderKaty MD [address] [place] [address] Social History Tobacco Use Types Packs/Day Years Used Date Smoking Tobacco: Former Cigarettes Q uit: 04/17/1986 Alcohol Use Standard Drinks/Week Comments Yes 0 (1 standard drink = 0.6 oz pur e alcohol) Comments Unknown Sex and Gender Information Value Date Recorded Sex Assigned at Not on file Legal Sex Female 9:54 AM SLAGGER Gender Identity Not on file Sexual Orientation Not on file documented as of this encounter Plan of Treatment Not on file documented as of this encounter Procedures Procedure Name Priority Date/Time Associated Diagnosis Comments CARDIOLOGY REPORT 08/23/2016 documented in this encounter Results * CARDIOLOGY REPORT (08/23/2016) Anatomical Region Laterality Modality Other Narrative 08/23/2016 Ordered by an unspecified provider. us Historical Provider [facility] ZACH FOREMAN Final Result documented in this encounter Visit Diagnoses Not on filedocumented in this encounter Care Teams Telephone Exchange Operator Relationship Specialty Start Date End Date Emily Campbell NP PCP - General 07/15/16 12/25/16 Wilner Burnham MD [address] [place], [place] [phone] PCP - General Internal Medicine 12/26/16 01/11/22 Sebastien Elmore DO [address] [place], [place] [id number] PCP - General Family Medicine 01/12/22 05/29/24 No, Physician PCP - General 05/30/24 documented as of this encounter
--- OUTSIDE RECORDS SUMMARY | 2024-10-02 12:17 | XMS_ITS | Clinical Summary ---
Author Organization [facility] [place] [address] Address [address] [place] [address] Care Team Providers Care Seismograph Computer Name Role Phone No, Physician Primary Care Provider [phone] Allergies Active Allergy Reactions Criticality Noted Date Comments Perflutren Lipid Microspheres Other (See comments) Low 06/13/2022 Sudden back ache [place] Flavor Unknown Prochlorperazine Blisters High Reaction: BLISTERS, [...] total) by mouth daily 90 tablet 3 02/13/05/30/19 26 Active Active Problems Problem Noted Date [...] Dilated cardiomyopathy 11/05/2012 Overview (07/22/2016): CARDIOMYOPATH IN OTH DIS Assessment & Plan (11/24/2016 8:14 PM [...] Hypertension 11/05/2012 11/24/2016 Overview (07/22/2016): HYPERTENSION NOS Encounters Date Type Department Care Team Description 10/02/2024 10:00 AM CDT Ancillary Procedure [facility] Cardiology [address] [place] [address] NICM (nonischemic cardiomyopathy) (HCC); Congestive heart failure, unspecified HF chronicity, unspecified heart failure type (HCC); Complete atrioventricular block (HCC); 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 10/02/2024 Orders Only [facility] Cardiology [address] [facility] [address], [place] [address] Sherif Borden MD Complete atrioventricular block (HCC) (Primary Dx); 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 Heart disease 12/2005 Family History Medical History Relation Name Comments Atrial fibrillation Brother Lenny [place] Deep vein thrombosis Brother Lenny [place] Hearing loss Brother Lenny [place] Arthritis Father Ruben Pfannebecker Cancer Father Ruben Pfannebecker Diabetes Father Ruben Pfannebecker Hearing loss Father Ruben Pfannebecker Heart disease Father Ruben Pfannebecker Heart failure Father Ruben Pfannebecker Hypertension Father Ruben Pfannebecker Rashes / Skin problems Father Ruben Pfannebecker Arthritis Mother Da Pfannebecker Atrial fibrillation Mother Da Pfannebecker Cancer Mother Da Pfannebecker Heart disease Mother Da Pfannebecker Heart failure Mother Da Pfannebecker Miscarriages / Stillbirths Mother Da Pfannebeck er Atrial fibrillation Sister Relation Name Status Comments Brother TeraRicardo [place] Father Ruben Pfannebecker (Age 92) Mother Da Pfannebecker (Age 90) Sister Social History Tobacco Use Types Packs/Day Years Used Date Smoking Tobacco: Former Cigarettes 0.8 10 0 04/17/1978 - 04/17/1988 Smokeless Tobacco: Never Tobacco Cessation:Counseling Given: Not Answered Alcohol Use Standard Drinks/Week Comments Yes 0 (1 standard drink = 0.6 oz pur e alcohol) Comments Unknown Sex and Gender Information Value Date Recorded Sex Assigned at Not on file Legal Sex Female 9:54 AM PAYROLL CONSULTANT Gender Identity Not on file Sexual Orientation Not on file Obstetrics History Last Filed Vital Signs Vital Sign Reading Time Taken Comments Blood Pressure 120/64 05/30/2024 10:24 AM PAYROLL CONSULTANT Pulse 65 05/30/2024 10:24 AM PAYROLL CONSULTANT Temperature 36.2 C (97.1 F) 04/03/2020 10:18 AM PAYROLL CONSULTANT Respiratory Rate 14 11/24/2016 1:20 PM CDT Oxygen Saturation 96% 05/30/2024 10:24 AM PAYROLL CONSULTANT Inhaled Oxygen Concentration - - Weight 98 kg (216 lb) 05/30/2024 10:24 AM PAYROLL CONSULTANT Height 170.2 cm (5' 7) 05/30/2024 10:24 AM PAYROLL CONSULTANT Body Mass Index 33.83 05/30/2024 10:24 AM PAYROLL CONSULTANT Plan of Treatment Health Maintenance Due Date Last Done Comments Depression Screening 1948 Fall Risk Assessment 1948 Hepatitis C Screening 1950 Osteoporosis Screening-Bone Density Scan 1948 Hepatitis B Screening 1966 Well Visit 65+ 2013 Pneumococcal vaccine 65+ (3 of 3 - PCV20 or PCV21) 01/31/2021 02/01/2016, 02/12/2013 DTaP/Tdap/Td Vaccine (2 - Tdap) 02/21/2021 1 Covid-19 Vaccine (6 - 2023-2 5 season) 2025 07/29/2024, 01/14/2022, 02/19/2021, Additional history exists Zoster Vaccine Completed 12/04/2019, 05/28/2019 Influenza Vaccine Completed 07/29/2024, , 02/05/2021, Additional history exists Medical Devices Implanted Type Area Readers' Advisory Service Librarian Device Identifier Shelf Expiration Date Model / Serial / Lot Icd-02/15/2012 Implanted:02/14 (Quantity not on file) Explanted:09/12 by Brook Loredo MD (Quantity not on file) ICD Chest Medtronic NICM, CHF, CHB PROTECTA C RT-D / [id number] / CHRONIC ATRIAL LEAD 2006 Icd-09/12/2017 Implanted:09/12 by Brook Loredo MD (Quantity not on file) ICD Chest Medtronic NICM, CHF, CHB VIVA TANK INSULATOR RUBBER-D / [id number] / CHRONIC LEADS A-2006-RV/LV-2 012 Insurance MEDICARE MEDICARE [facility] Care Teams Seismograph Computer Relationship Specialty Start Date End Date No, Physician PCP - General 05/30/24
--- OUTSIDE RECORDS SUMMARY | 2024-10-02 12:17 | XMS_ITS | Encounter Summary ---
Author Organization [facility] Address [address] [place] [address] Care Team Providers Care Solar Sales Representative And Assessor Name Role Phone Emily Campbell NP Primary Care Provider [phone] Emily Campbell NP Primary Care Provider [phone] Wilner Burnham MD Primary Care Provider [phone] Sebastien Elmore DO Primary Care Provider [phone] No, Physician Primary Care Provider [phone] Encounter Details Date Type Department Care Team (Late st Contact Info) Description 05/25/2016 Orders Only [facility] ProviderKaty MD [facility] [place] [address] Social History Tobacco Use Types Packs/Day Years Used Date Smoking Tobacco: Former Cigarettes Q uit: 04/17/1986 Alcohol Use Standard Drinks/Week Comments Yes 0 (1 standard drink = 0.6 oz pur e alcohol) Comments Unknown Sex and Gender Information Value Date Recorded Sex Assigned at Not on file Legal Sex Female 9:54 AM BOOM BOSS Gender Identity Not on file Sexual Orientation Not on file documented as of this encounter Plan of Treatment Not on file documented as of this encounter Procedures Procedure Name Priority Date/Time Associated Diagnosis Comments CARDIOLOGY REPORT 05/25/2016 documented in this encounter Results * CARDIOLOGY REPORT (05/25/2016) Anatomical Region Laterality Modality Other Narrative 05/25/2016 Ordered by an unspecified provider. us Historical Provider [facility] ZACH FOREMAN Final Result documented in this encounter Visit Diagnoses Not on filedocumented in this encounter Care Teams Solar Sales Representative And Assessor Relationship Specialty Start Date End Date Emily Campbell NP PCP - General 07/15/16 12/25/16 Emily Campbell NP PCP - General 05/18/07 07/14/16 Wilner Burnham MD [address] [place] [address] PCP - General Internal Medicine 12/26/16 01/11/22 Sebastien Elmore DO [address] [place] [address] PCP - General Family Medicine 01/12/22 05/29/24 No, Physician PCP - General 05/30/24 documented as of this encounter
--- OUTSIDE RECORDS SUMMARY | 2024-10-02 12:17 | XMS_ITS | Encounter Summary ---
Author Organization [facility] Address [address] [place] [address] Care Team Providers Care Mill Helper Name Role Phone Madai No MD Primary Care Provider [phone] Encounter Details Date Type Department Care Team (Late st Contact Info) Description 12/01/2005 Outpatient Historical [facility] Madai No MD Other Screening Mammogram (Primary Dx) Social History Tobacco Use Types Packs/Day Years Used Date Smoking Tobacco: Never Assessed Comments Unknown Sex and Gender Information Value Date Recorded Sex Assigned at Not on file Legal Sex Female 5:15 AM ASSISTANT PROFESSOR OF DIETETICS Gender Identity Not on file Sexual Orientation Not on file documented as of this encounter Plan of Treatment Not on file documented as of this encounter Visit Diagnoses Diagnosis Other screening mammogram- Primary documented in this encounter Care Teams Mill Helper Relationship Specialty Start Date End Date Madai No MD [address] [place] [id number] PCP - General 04/03/15 documented as of this encounter
--- OUTSIDE RECORDS SUMMARY | 2024-10-02 13:18 | XMS_ITS | Encounter Summary ---
Author Organization [facility] Address [address] [place] [address] Care Team Providers Care Operations Engineer Name Role Phone Madai No MD Primary Care Provider [phone] Encounter Details Date Type Department Care Team (Late st Contact Info) Description 12/06/2006 Outpatient Historical [facility] Madai No MD Other Screening Mammogram (Primary Dx) Social History Tobacco Use Types Packs/Day Years Used Date Smoking Tobacco: Never Assessed Comments Unknown Sex and Gender Information Value Date Recorded Sex Assigned at Not on file Legal Sex Female 5:15 AM ASSISTANT CLINICAL NURSE MANAGER Gender Identity Not on file Sexual Orientation Not on file documented as of this encounter Plan of Treatment Not on file documented as of this encounter Visit Diagnoses Diagnosis Other screening mammogram- Primary documented in this encounter Care Teams Operations Engineer Relationship Specialty Start Date End Date Madai No MD [address] [place] [address] PCP - General 04/03/15 documented as of this encounter
--- OUTSIDE RECORDS SUMMARY | 2024-10-02 13:18 | XMS_ITS | Encounter Summary ---
Author Organization [facility] Address [address] [place] [address] Care Team Providers Care Marine Pilot Name Role Phone Emily Campbell NP Primary Care Provider [phone] Emily Campbell NP Primary Care Provider [phone] Wilner Burnham MD Primary Care Provider [phone] Sebastien Elmore DO Primary Care Provider [phone] No, Physician Primary Care Provider [phone] Encounter Details Date Type Department Care Team (Late st Contact Info) Description 05/25/2016 Orders Only [facility] ProviderKaty MD [facility] [place] [address] Social History Tobacco Use Types Packs/Day Years Used Date Smoking Tobacco: Former Cigarettes Q uit: 04/17/1986 Alcohol Use Standard Drinks/Week Comments Yes 0 (1 standard drink = 0.6 oz pur e alcohol) Comments Unknown Sex and Gender Information Value Date Recorded Sex Assigned at Not on file Legal Sex Female 9:54 AM 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
--- OUTSIDE RECORDS SUMMARY | 2024-10-02 13:18 | XMS_ITS | Referral Summary ---
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; NICM (nonischemic cardiomyopathy) (HCC); Congestive heart failure, unspecified HF chronicity, unspecified heart failure type (HCC) 10/02/2024 10:00 AM CDT Ancillary Procedure [facility] Cardiology [address] [place] [address] NICM (nonischemic cardiomyopathy) (HCC); Congestive heart failure, unspecified HF chronicity, unspecified heart failure type (HCC); Complete atrioventricular block (HCC); 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 from Last 3 Months Allergies Active Allergy Reactions Criticality Noted Date Comments Perflutren Lipid Microspheres Other (See comments) Low 06/13/2022 Sudden back ache [place] Flavor Unknown Prochlorperazine Blisters High Reaction: BLISTERS, [...] Dilated cardiomyopathy 11/05/2012 Overview (07/22/2016): CARDIOMYOPATH IN [facility] DIS Assessment & Plan (11/24/2016 8:14 [...] on file Legal Sex Female 9:54 AM FLIGHT COMMUNICATIONS OFFICER Gender Identity Not on file Sexual Orientation Not on file Last Filed Vital Signs Vital Sign Reading Time Taken Comments Blood Pressure 120/64 05/30/2024 10:24 AM FLIGHT COMMUNICATIONS OFFICER Pulse 65 05/30/2024 10:24 AM FLIGHT COMMUNICATIONS OFFICER Temperature 36.2 C (97.1 F) 04/03/2020 10:18 AM FLIGHT COMMUNICATIONS OFFICER Respiratory Rate 14 11/24/2016 1:20 PM CDT Oxygen Saturation 96% 05/30/2024 10:24 AM FLIGHT COMMUNICATIONS OFFICER Inhaled Oxygen Concentration - - Weight 98 kg (216 lb) 05/30/2024 10:24 AM FLIGHT COMMUNICATIONS OFFICER Height 170.2 cm (5' 7) 05/30/2024 10:24 AM FLIGHT COMMUNICATIONS OFFICER Body Mass Index 33.83 05/30/2024 10:24 AM FLIGHT COMMUNICATIONS OFFICER Plan of Treatment Not on file Medical Devices Implanted Type Area Horser Up Device Identifier Shelf Expiration Date Model / Serial / Lot Icd-02/15/2012 Implanted:02/14 (Quantity not on file) Explanted:09/12 by Brook Loredo MD (Quantity not on file) ICD Chest Medtronic NICM, CHF, CHB PROTECTA C RT-D / [id number] / CHRONIC ATRIAL LEAD 2006 Icd-09/12/2017 Implanted:09/12 by Brook Loredo MD (Quantity not on file) ICD Chest Medtronic NICM, CHF, CHB VIVA TRUCKLOAD OWNER OPERATOR-D / [id number] / CHRONIC LEADS A-2006-RV/LV-2 012 Insurance MEDICARE MEDICARE [facility] Member Subscriber Plan / Payer (Ef fective 2007-Present) Name:Nir Pradhan Relation to Subscriber:Self Name:Nir Pradhan Payer ID:[id number] ([facility]) Group ID:[id number] Type:[employer] Address: [facility] [address] [id number] Care Teams Calender Wind Up Tender Relationship Specialty Start Date End Date No, Physician PCP - General 05/30/24
--- OUTSIDE RECORDS SUMMARY | 2024-10-02 13:18 | XMS_ITS | Encounter Summary ---
Author Organization [facility] Address [address] [place] [address] Care Team Providers Care Produce Manager Name Role Phone Emily Campbell NP Primary Care Provider [phone] Wilner Burnham MD Primary Care Provider [phone] Sebastien Elmore DO Primary Care Provider [phone] No, Physician Primary Care Provider [phone] Encounter Details Date Type Department Care Team (Late st Contact Info) Description 08/23/2016 Orders Only [facility] ProviderKaty MD [address] [place] [address] Social History Tobacco Use Types Packs/Day Years Used Date Smoking Tobacco: Former Cigarettes Q uit: 04/17/1986 Alcohol Use Standard Drinks/Week Comments Yes 0 (1 standard drink = 0.6 oz pur e alcohol) Comments Unknown Sex and Gender Information Value Date Recorded Sex Assigned at Not on file Legal Sex Female 9:54 AM METALLURGY TEACHER Gender Identity Not on file Sexual Orientation [...] on filedocumented in this encounter Care Teams Produce Manager Relationship Specialty Start Date End Date Emily Campbell NP PCP - General 07/15/16 12/25/16 Wilner Burnham MD [address] [place], [place] [id number] PCP - General Internal Medicine 12/26/16 01/11/22 Sebastien Elmore DO [address] [place], [place] [id number] PCP - General Family Medicine 01/12/22 05/29/24 No, Physician PCP - General 05/30/24 documented as of this encounter
--- OUTSIDE RECORDS SUMMARY | 2024-10-02 13:18 | XMS_ITS | Encounter Summary ---
Author Organization [facility] Address [address] [place] [address] Care Team Providers Care Rn Midwife Name Role Phone Madai No MD Primary Care Provider [phone] Encounter Details Date Type Department Care Team (Latest Contact Info) Description 01/20/2006 Outpatient Historical HIS [facility] Madai Lopez MD Abnormal Mammogram, Unspecified (Primary Dx) Social History Tobacco Use Types Packs/Day Years Used Date Smoking Tobacco: Never Assessed Comments Unknown Sex and Gender Information Value Date Recorded Sex Assigned at Not on file Legal Sex Female 5:15 AM HOUSEKEEPING AIDE Gender Identity Not on file Sexual Orientation Not on file documented as of this encounter Plan of Treatment Not on file documented as of this encounter Visit Diagnoses Diagnosis Abnormal mammogram, unspecified- Primary documented in this encounter Care Teams Rn Midwife Relationship Specialty Start Date End Date Madai No MD [address] [place] [phone] PCP - General 04/03/15 documented as of this encounter
--- OUTSIDE RECORDS SUMMARY | 2024-10-02 13:18 | XMS_ITS | Encounter Summary ---
Author Organization [facility] Address [address] [place] [address] Care Team Providers Care Agile Tester Name Role Phone No, Physician Primary Care Provider [phone] Reason for Referral * Cardiology (Routine) - Authorized Specialty Diagnoses / Procedures Referred By Contac t Referred To Contact Diagnoses Complete atrioventricular block (HCC) Biventricular ICD (implantable cardioverter-defibrillator) in place NICM (nonischemic cardiomyopathy) (HCC) Congestive heart failure, unspecified HF chronicity, unspecified heart failure type (HCC) Procedures DEVICE CHECK - REMOTE Sherif Borden MD [address] [address] Phone: tel: fax: Referral ID Status Reason Start Date Expiration Date V isits Requested Visits Authorized [id number] Authorized 10/02/2024 04/03/2026 1 1 * Cardiology (Routine) - Authorized Specialty Diagnoses / Procedures Referred By Contac t Referred To Contact Diagnoses Complete atrioventricular block (HCC) Biventricular ICD (implantable cardioverter-defibrillator) in place NICM (nonischemic cardiomyopathy) (HCC) Congestive heart failure, unspecified HF chronicity, unspecified heart failure type (HCC) Procedures DEVICE CHECK - REMOTE Sherif Borden MD [address] [place] [address] Phone: tel: fax: Referral ID Status Reason Start Date Expiration Date V isits Requested Visits Authorized [id number] Authorized 10/02/2024 04/03/2026 1 1 * Cardiology (Routine) - Authorized Specialty Diagnoses / Procedures Referred By Contac t Referred To Contact Diagnoses Complete atrioventricular block (HCC) Biventricular ICD (implantable cardioverter-defibrillator) in place NICM (nonischemic cardiomyopathy) (HCC) Congestive heart failure, unspecified HF chronicity, unspecified heart failure type (HCC) Procedures DEVICE CHECK - REMOTE Sherif Borden MD [address] [place] [address] Phone: tel: fax: Referral ID Status Reason Start Date Expiration Date V isits Requested Visits Authorized [id number] Authorized 10/02/2024 04/03/2026 1 1 * Cardiology (Routine) - Authorized Specialty Diagnoses / Procedures Referred By Contac t Referred To Contact Diagnoses Complete atrioventricular block (HCC) Biventricular ICD (implantable cardioverter-defibrillator) in place NICM (nonischemic cardiomyopathy) (HCC) Congestive heart failure, unspecified HF chronicity, unspecified heart failure type (HCC) Procedures DEVICE CHECK - IN OFFICE Sherif Borden MD [address] [facility] [address] [address] [place] [address] Phone: tel: fax: [facility] Referral ID Status Reason Start Date Expiration Date V isits Requested Visits Authorized [id number] Authorized 10/02/2024 11/01/2025 1 1 Encounter Details Date Type Department Care Team (Late st Contact Info) Description 10/02/2024 Orders Only [facility] Cardiology [address] [place] [phone] Sherif Borden MD [address] [place] [address] Complete atrioventricular block (HCC) (Primary Dx); Biventricular [...] on file 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
--- OUTSIDE RECORDS SUMMARY | 2024-10-02 13:18 | XMS_ITS | Clinical Summary ---
Author Organization [facility] Address [address] Attn: Epic Prelude ADT [place] [address] Care Team Providers Care Engineering Technician Parking Name Role Phone Madai No MD Primary Care Provider [phone] Social History Tobacco Use Types Packs/Day Years Used Date Smoking Tobacco: Never Assessed Comments Unknown Sex and Gender Information Value Date Recorded Sex Assigned at Not on file Legal Sex Female 5:15 AM UNIT SUPPORT REPRESENTATIVE Gender Identity Not on file Sexual Orientation Not on file Plan of Treatment Health Maintenance Due Date Last Done Comments DTAP/TDAP/TD VACCINES (1 - Tdap) 1967 PNEUMOCOCCAL VACCINE 50+ YEARS (1 of 1 - PCV) 04/25/18 99 ZOSTER VACCINE (1 of 2) 1998 OSTEOPOROSIS SCREENING 2013 RSV VACCINE (60+ or ) (1 - 1-dose 75+ series) 2023 INFLUENZA VACCINE (#1) 2023 Care Teams Engineering Technician Parking Relationship Specialty Start Date End Date Madai No MD [address] [address] PCP - General 04/03/15
--- OUTSIDE RECORDS SUMMARY | 2024-10-02 13:18 | XMS_ITS | Encounter Summary ---
Author Organization [facility] Address 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
--- OUTSIDE RECORDS SUMMARY | 2024-10-02 13:18 | XMS_ITS | Clinical Summary ---
Author Organization [facility] [place] [address] Address [address] [place] [address] Care Team Providers Care Senior Android Software Engineer Name Role Phone No, Physician Primary Care Provider [phone] Allergies Active Allergy Reactions Criticality Noted Date Comments Perflutren Lipid Microspheres Other (See comments) Low 06/13/2022 Sudden back ache [place] Flavor Unknown Prochlorperazine Blisters High Reaction: BLISTERS, [...] Description 10/02/2024 10:00 AM CDT Ancillary Procedure [facility] Card[facility] [address] [place] [address] NICM (nonischemic cardiomyopathy) (HCC); Congestive heart failure, unspecified HF chronicity, unspecified heart failure type (HCC); Complete atrioventricular block (HCC); 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 10/02/2024 Orders Only [facility] [address] [facility] [address], [place] [address] Sherif Borden MD Complete atrioventricular [...] on file 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 Gender Identity Not on file Sexual Orientation Not on file Obstetrics History Last Filed Vital Signs Vital Sign Reading Time Taken Comments Blood Pressure 120/64 05/30/2024 10:24 AM MASSAGE OPERATOR Pulse 65 05/30/2024 10:24 AM MASSAGE OPERATOR Temperature 36.2 C (97.1 F) 04/03/2020 10:18 AM MASSAGE OPERATOR Respiratory Rate 14 11/24/2016 1:20 PM CDT Oxygen Saturation 96% 05/30/2024 10:24 AM MASSAGE OPERATOR Inhaled Oxygen Concentration - - Weight 98 kg (216 lb) 05/30/2024 10:24 AM MASSAGE OPERATOR Height 170.2 cm (5' 7) 05/30/2024 10:24 AM MASSAGE OPERATOR Body Mass Index 33.83 05/30/2024 10:24 AM MASSAGE OPERATOR Plan of Treatment Health Maintenance Due Date [...] history exists Medical Devices Implanted Type Area [employer] Device Identifier Shelf Expiration Date Model / Serial / Lot Icd-02/15/2012 Implanted:02/14 (Quantity not on file) Explanted:09/12 by Brook Loredo MD (Quantity not on file) ICD Chest Medtronic NICM, CHF, CHB PROTECTA C RT-D / [id number] / CHRONIC ATRIAL LEAD 2006 Icd-09/12/2017 Implanted:09/12 by Brook Loredo MD (Quantity not on file) ICD Chest Medtronic NICM, CHF, CHB VIVA PLASTER AND STUCCO WORKER-D / [id number] / CHRONIC LEADS A-2006-RV/LV-2 012 Insurance MEDICARE MEDICARE [facility] Care Teams Senior Android Software Engineer Relationship Specialty Start Date End Date No, Physician PCP - General 05/30/24
--- OUTSIDE RECORDS SUMMARY | 2024-10-02 13:18 | XMS_ITS | Encounter Summary ---
Author Organization [facility] Address [address] [place] [address] Care Team Providers Care Administrative And Program Specialist Name Role Phone No, Physician Primary Care Provider [phone] Reason for Visit * Cardiology (Routine) - Closed Specialty Diagnoses / Procedures Referred By Contac t Referred To Contact Diagnoses NICM (nonischemic cardiomyopathy) (HCC) Congestive heart failure, unspecified HF chronicity, unspecified heart failure type (HCC) Complete atrioventricular block (HCC) Biventricular ICD (implantable cardioverter-defibrillator) in place Procedures DEVICE CHECK - IN OFFICE Brook Loredo MD Phone: tel: fax: [facility] Referral ID Status Reason Start Date Expiration Date Visits Re quested Visits Authorized [id number] Closed 01/12/2022 02/11/2023 1 1 Encounter Details Date Type Department Care Team (Latest Contact Info) Description 10/02/2024 10:00 AM CDT Ancillary Procedure [facility] Cardiology [address] [place] [address] NICM (nonischemic cardiomyopathy) (HCC); Congestive [...] on file 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
--- OUTSIDE RECORDS SUMMARY | 2024-10-02 13:18 | XMS_ITS | Encounter Summary ---
Author Organization [facility] Address 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 Gender Identity Not on file Sexual Orientation [...] PM CDT Narrative 01/01/2008 2:36 PM CDT [address] [address] Admit Date: 12/13/2007 TAMAR PRADHAN Sex: F Admit Prov: SUNDAY NO Date: 1950 Primary Care Prov: SUNDAY NO CMRN: [id number] [facility] [address] [place] [address] IMAGING SERVICES Ordering Prov: SUNDAY NO Accession Number: [id number] Interpretation BILATERAL SCREENING MAMMOGRAM 12/13/07 Reason for [...] Barry Barrett MD - 01/01/2008 [facility] [address] [place], [place] [address] Admit Date: 12/13/2007 SEMAJ RISHABHLATISHA Sex: F Admit Prov: KEAGAN SUNDAY Date: 1950 Primary Care Prov: SUNDAY NO CMRN: [id number] Room: [facility] SSN: [id number] IMAGING SERVICES Ordering Prov: KEAGAN SUNDAY Interpretation [...] mammogram documented in this encounter Care Teams Showroom Manager Relationship Specialty Start Date End Date Sunday No MD [address] [address] PCP - General 12/18/15 documented as of this encounter
== END 2024-10-02 13:04 | disposition home or self-care (01) ==
PROVIDERS: Emergency Provider Physician Assistant
DX: S86.911A Strain of unspecified muscle(s) and tendon(s) at lower leg level, right leg, initial encounter (principal); X50.1XXA Overexertion from prolonged static or awkward postures, initial encounter; I10 Essential (primary) hypertension; E78.5 Hyperlipidemia, unspecified
CPT/HCPCS: 70450; 73564; 93971; 99284; A9270